=== PATIENT | female | born 1995 | race Caucasian/White ===

== ENCOUNTER 2023-06-01 09:22 | Emergency (ER) | payer OTHER ==
[~2023-06-01] VITALS: Ht 167.6 cm; Wt 72.6 kg
[2023-06-01 09:42] VITALS: BP 116/77; PULSE 89; RESP 18; TEMP 98; O2SAT 98
== END 2023-06-01 10:46 | disposition home or self-care (01) ==
LOC: MED 09:22
DX: S61.335A Puncture wound without foreign body of left ring finger with damage to nail, initial encounter (principal); X58.XXXA Exposure to other specified factors, initial encounter; Y93.89 Activity, other specified; Y92.89 Other specified places as the place of occurrence of the external cause; Y99.8 Other external cause status
CPT/HCPCS: 73140; 99283